=== PATIENT | male | born 1970 | race Caucasian/White ===

== ENCOUNTER 2017-06-05 23:09 | Observation (INO) | payer OTHER ==
[~2017-06-05] VITALS: Ht 172.7 cm; Wt 73.9 kg
[2017-06-05] MEDS ORDERED: SIMVASTATIN80 MG PO (23:25)
[2017-06-05] MEDS ORDERED: IRBESARTAN-HCT1 EACH PO (23:25)
[2017-06-05] MEDS ORDERED: AMLODIPINE BESYL5 MG PO (23:25)
--- NOTE | 2017-06-06 01:23 | NUR ---
ADMITTED PT 0045. HAS STOOD TO VOID X 2, HR INCREASED EACH TIME UP TO 150, BACK TO 80-90'S AT REST. NO DIZZYHNESS AT THIS TIME. PT INFORMED NOT TO GET OOB WITHOUT CALLING STAFF, GIVEN CALL LIGHT. PT STATES HE IS TIRED. WITH PT FROM ED NOW TO HOME.
--- NOTE | 2017-06-06 01:38 | NUR ---
PT CONVERTED TO NSR AT 0124. FEELS BETTER.
--- NOTE | 2017-06-06 04:04 | NUR ---
SLEEPING WELL. IN SINUS BATOOL CARDIA. UNABLE TO GET ACCURATE BP AT THIS TIME IS SLEEPING WITH ARM WITH BP CUFF ELEVATED.
--- NOTE | 2017-06-06 04:45 | NUR ---
AWAKE, STATES FEELING BETTER. REMAINS SR.
--- NOTE | 2017-06-06 08:00 | NUR ---
DR. JOHNSON IS HERE TO SEE PATIENT. PATIENT IS AWAKE AND ALERT.
--- NOTE | 2017-06-06 08:10 | NUR ---
TALKED WITH PATIENT ABOUT PALN OF CARE FOR DAY. ASSESSMENT DONE. SITTING UP IN BED READY FOR BREAKFAST. C/O SLIGHT LEFT SIDE NECK PAIN. DR. JOHNSON IS AWARE. PATIENT IS IN ROOM.
--- NOTE | 2017-06-06 09:00 | NUR ---
TOOK BREAKFAST WELL. DENIES PROBLEMS. REMAINS IN SR.
[2017-06-06] MEDS ORDERED: TAMSULOSIN HCL0.4 MG PO (09:40)
[2017-06-06] MEDS ORDERED: FLOVENT HFA12 GM INH (09:41)
[2017-06-06] MEDS ORDERED: VENTOLIN HFA18 GM INH (09:41)
--- NOTE | 2017-06-06 09:41 | NUR ---
MED REC COMPLETE-PER PHARMACY
--- NOTE | 2017-06-06 10:33 | NUR ---
I STOPPED TO VISIT THIS PT BRIEFLY, HE REFUSED PRAYER BUT WE TALKED A FEW MINUTES ANYWAY. HE WAS VERY CORDIAL. HE IS HOPING HIS PROBLEM IS TAKEN CARE OF SO HE CAN GO HOME. HE SEEMED TO BE IN A GOOD ATTITUDE AND RECEPTIVE TO MY VISIT, ALTHOUGH THE NURSE SAID HE MIGHT NOT BE. HOPEFULLY I WAS ABLE TO LEAVE A LITTLE COMFORT WITH HIM TO HELP BRIGHTEN HIS DAY.
--- NOTE | 2017-06-06 12:00 | NUR ---
ADVIL 400 MG PO GIVEN FOR LEFT SIDE NECK PAIN. RATES 5/10. ASSESSMENT DONE. HAS BEEN VOIDING FREQUENTLY.
--- NOTE | 2017-06-06 13:00 | NUR ---
PATIENT TO BE DISCHARGED. DR. JOHNSON HERE.
[2017-06-06] MEDS ORDERED: ASPIRIN EC81 MG PO (13:11)
[2017-06-06] MEDS ORDERED: NICORETTE2 MG MM (13:11)
[2017-06-06] MEDS ORDERED: METOPROLOL TART25 MG PO ×2 (13:12→13:14)
--- NOTE | 2017-06-06 13:45 | NUR ---
DISCHARGE INSTRUSTIONS GIVEN WITH PATIENT UNDERSTANDING. MONITOR/SL DC'D.
--- NOTE | 2017-06-06 14:00 | NUR ---
DISCHARGED VIA W/C ACCOMP BY RN AND .
--- NOTE | 2017-06-06 17:59 | EKG ---
[facility] [address] [facility] [place] [address] Signed Atrial fibrillation with rapid ventricular response Abnormal QRS-T angle, consider primary T wave abnormality Abnormal ECG No previous ECGs available Confirmed by BEN JOHNSON MD ([id number]) on 06/06/2017 5:59:48 PM Electronically Signed By: BEN JOHNSON MD 06/06/17 1759 PATIENT NAME: CHRISTINA BRIAN JULIETA Electrocardiogram DATE OF : 66 PHYSICIAN: BEN JOHNSON MD REPORT #: [id number] REPORT IS CONFIDENTIAL AND NOT TO BE RELEASED WITHOUT AUTHORIZATION
== END 2017-06-06 14:00 | disposition home or self-care (01) ==
LOC: ED 23:09 → CCU 23:11
PROVIDERS: ADMIT Internal Medicine
DX: I48.0 Paroxysmal atrial fibrillation (principal); I10 Essential (primary) hypertension; E87.6 Hypokalemia; E78.5 Hyperlipidemia, unspecified; F17.290 Nicotine dependence, other tobacco product, uncomplicated; F17.220 Nicotine dependence, chewing tobacco, uncomplicated; Z79.51 Long term (current) use of inhaled steroids; Z79.899 Other long term (current) drug therapy
CPT/HCPCS: 71010; 80053; 83735; 84439; 84443; 84484; 85025; 85610; 85730; 93005; 93010; 93306; 96361; 96374; 99285; 99406; G0378; G0480; J7030